=== PATIENT | female | born 1985 | race American Indian/Alaskan Native ===

== ENCOUNTER 2016-08-29 21:37 | Emergency (ER) | payer SELFPAY ==
[2016-08-29 22:54] LABS: Basophils % (Auto) 0.7 % (0.0-1.8); Eosinophils % (Auto) 2.9 % (0.0-4.3); Hematocrit 36.2 % (30.3-42.9); Hemoglobin 12.1 gm/dl (10.1-14.3); Mean Corpuscular HGB Conc 34 % (30-34); Mean Corpuscular Hemoglobin 26 pg (28-32); Mean Corpuscular Volume 78 fl (79-97); Platelet Count 264 K/mm3 (140-440); Red Blood Count 4.62 M/mm3 (3.65-5.03); Red Cell Distribution Width 12.8 % (13.2-15.2); White Blood Count 9.2 K/mm3 (4.5-11.0)
[2016-08-29 23:14] LABS: Alanine Aminotransferase 10 units/L (7-56); Albumin 3.7 g/dL (3.9-5); Alkaline Phosphatase 64 units/L (35-129); Chloride 98.9 mmol/L (98-107); Potassium 3.6 mmol/L (3.6-5.0); Sodium 136 mmol/L (137-145)
[2016-08-29 23:30] LABS: Albumin/Globulin Ratio 1.1 %; Anion Gap 18 mmol/L; Bilirubin,Total < 0.20 mg/dL (0.1-1.2); Blood Urea Nitrogen 7 mg/dL (7-17); Calcium 8.6 mg/dL (8.4-10.2); Carbon Dioxide 23 mmol/L (22-30); Glucose 97 mg/dL (65-100); Lipase 30 units/L (13-60); Total Protein 7.2 g/dL (6.3-8.2)
[2016-08-30 00:54] LABS: Bilirubin,Urine NEG (Negative); Blood,Urine NEG (Negative); Ketones,Urine NEG (Negative); Leukocyte Esterase,Urine NEG (Negative); Mucus,Urine 2+ /HPF; Nitrite,Urine NEG (Negative); Protein,Urine <15 mg/dL mg/dL (Negative); Urobilinogen,Urine < 2.0 mg/dL (<2.0)
[2016-08-30 04:43] VITALS: BP 132/50
--- NOTE | 2016-09-02 14:42 | ED Elopement Review ---
ED Pt Elopement review - Results review Lab results: Laboratory Tests 08/29/16 08/29/16 08/29/16 22:40 22:40 23:49 WBC 9.2 RBC 4.62 Hgb 12.1 Hct 36.2 MCV 78 L MCH 26 L MCHC 34 RDW 12.8 L Plt Count 264 Lymph % (Auto) 29.4 [place] % (Auto) 6.2 Eos % (Auto) 2.9 Baso % (Auto) 0.7 Lymph # 2.7 [place] # 0.6 Eos # 0.3 Baso # 0.1 Seg Neutrophils % 60.8 Seg Neutrophils # 5.6 Sodium 136 L Potassium 3.6 Chloride 98.9 Carbon Dioxide 23 Anion Gap 18 BUN 7 Creatinine 0.5 L Estimated GFR > 60 BUN/Creatinine Ratio 14.00 Glucose 97 Calcium 8.6 Total Bilirubin < 0.20 AST 9 ALT 10 Alkaline Phosphatase 64 Total Protein 7.2 Albumin 3.7 L Albumin/Globulin Ratio 1.1 Lipase 30 HCG, Quant Urine Color Yellow Urine Turbidity Clear Urine pH 5.0 Ur Specific [place] 1.020 Urine Protein <15 mg/dl Urine Glucose (UA) Neg Urine Ketones Neg Urine Blood Neg Urine Nitrite Neg Urine Bilirubin Neg Urine Urobilinogen < 2.0 Ur Leukocyte Esterase Neg Urine WBC (Auto) 1.0 Urine RBC (Auto) 1.0 U Epithel Cells (Auto) < 1.0 Urine Mucus 2+ Urine HCG, Qual Positive A 08/30/16 03:22 WBC RBC Hgb Hct MCV MCH MCHC RDW Plt Count Lymph % (Auto) [place] % (Auto) Eos % (Auto) Baso % (Auto) Lymph # [place] # Eos # Baso # Seg Neutrophils % Seg Neutrophils # Sodium Potassium Chloride Carbon Dioxide Anion Gap BUN Creatinine Estimated GFR BUN/Creatinine Ratio Glucose Calcium Total Bilirubin AST ALT Alkaline Phosphatase Total Protein Albumin Albumin/Globulin Ratio Lipase HCG, Quant 17291 H Urine Color Urine Turbidity Urine pH Ur Specific [place] Urine Protein Urine Glucose (UA) Urine Ketones Urine Blood Urine Nitrite Urine Bilirubin Urine Urobilinogen Ur Leukocyte Esterase Urine WBC (Auto) Urine RBC (Auto) U Epithel Cells (Auto) Urine Mucus Urine HCG, Qual - Call Back decision Pt Call Back Decision: Call pt to return to ED [facility] (Abdominal pain and . Needs ultrasound to evaluate for ectopic .)
== END 2016-08-30 07:32 | disposition left against medical advice (07) ==
LOC: ED 21:37
DX: O21.9 Vomiting of pregnancy, unspecified (principal); R11.0 Nausea; R10.2 Pelvic and perineal pain; Z3A.13 13 weeks gestation of pregnancy; Z53.21 Procedure and treatment not carried out due to patient leaving prior to being seen by health care provider
CPT/HCPCS: 36415; 80053; 81001; 81025; 83690; 84702; 85025

== ENCOUNTER 2016-11-16 06:19 | Observation (INO) | payer MEDICAID ==
[2016-11-16] MEDS ORDERED: LACTATED RINGERS 1,000 ML ONE (06:59)
[2016-11-16 07:50] LABS: Bacteria,Urine 1+ /HPF (Negative); Bilirubin,Urine NEG (Negative); Blood,Urine NEG (Negative); Ketones,Urine NEG (Negative); Leukocyte Esterase,Urine NEG (Negative); Mucus,Urine FEW /HPF; Nitrite,Urine NEG (Negative); Protein,Urine <15 mg/dL mg/dL (Negative); RBC,Urine < 1.0 /HPF (0.0-6.0); Urobilinogen,Urine < 2.0 mg/dL (<2.0); WBC,Urine < 1.0 /HPF (0.0-6.0)
[2016-11-16] MEDS ORDERED: LACTATED RINGERS 500 ML IV ONE (08:00)
[2016-11-16] MEDS ORDERED: VISTARIL PO PRN (10:00)
[2016-11-16 11:00] VITALS: BP 117/55
[2016-11-16] MEDS ORDERED: ZOFRAN IV PRN (11:00)
--- NOTE | 2016-11-16 11:05 | Ultrasound Report ---
COMPLETE OB ULTRASOUND: Gestation: [place] Position: Cephalic RAFAELA = 18.3 cm Placenta: Anterior Placental Grade: 0 Heart Rate: 128 BPM Cervical length: 5.0 cm (Normal > 3 cm) NEUROANATOMY VISUALIZED: Choroid Plexus Cisterna Magnum Cerebellum Lateral Ventricle ANATOMY VISUALIZED: Stomach Kidneys Bladder Diaphragm 4 Chamber Heart Heart 3 Vessel Cord Abd. Cord Insert SPINE VISUALIZED: Limited spine due to position BPD: 5.8 cm = 23 w 4 d HC: 21.8 cm = 23 w 6 d AC: 18.5 cm = 23 w 2 d FL: 4.4 cm = 24 w 3 d HC/AC Ratio: 1.18 Cephalic Index: 80.6 Estimated Weight: 629 grams Clinical age = 23 w 6 d EDC: 03/09/17 US Gest. Age = 23 w 6 d EDC: 03/09/17
[2016-11-16 12:39] LABS: Hemoglobin 10.2 gm/dl (10.1-14.3); Mean Corpuscular HGB Conc 34 % (30-34); Mean Corpuscular Hemoglobin 26 pg (28-32); Mean Corpuscular Volume 77 fl (79-97); Platelet Count 219 K/mm3 (140-440); Red Blood Count 3.91 M/mm3 (3.65-5.03); Red Cell Distribution Width 13.4 % (13.2-15.2); White Blood Count 11.8 K/mm3 (4.5-11.0)
[2016-11-16 12:41] LABS: Anion Gap 17 mmol/L; Blood Urea Nitrogen 5 mg/dL (7-17); Calcium 7.8 mg/dL (8.4-10.2); Carbon Dioxide 21 mmol/L (22-30); Chloride 106.3 mmol/L (98-107); Glucose 88 mg/dL (65-100); Potassium 3.9 mmol/L (3.6-5.0); Sodium 140 mmol/L (137-145)
== END 2016-11-16 15:15 | disposition home or self-care (01) ==
LOC: TRG 06:19 → LD 09:28
PROVIDERS: ADMIT Obstetrics & Gynecology; ATTEND Obstetrics & Gynecology
DX: O26.892 Other specified pregnancy related conditions, second trimester (principal); R11.0 Nausea; R10.9 Unspecified abdominal pain; Z3A.23 23 weeks gestation of pregnancy
CPT/HCPCS: 36415; 76805; 80048; 81001; 85027; 96374; G0378; J2405; J7120; Q0177

== ENCOUNTER 2017-02-28 09:58 | Inpatient (IN) | payer MEDICAID ==
[2017-02-28] MEDS ORDERED: ePHEDrine SULFATE IV PRN ×3 (10:25→12:54)
[2017-02-28] MEDS ORDERED: SUBLIMAZE IV PRN (10:25)
[2017-02-28] MEDS ORDERED: BRETHINE SUB-Q PRN ×2 (10:25→12:54)
[2017-02-28] MEDS ORDERED: BRETHINE IVP PRN ×2 (10:25→12:54)
[2017-02-28] MEDS ORDERED: XYLOCAINE 2% INFILTRATI ONE ×2 (10:25→14:00)
[2017-02-28] MEDS ORDERED: PITOCin/NS 20 UNIT/1000ML DRIP 20 UNITS/1,000 ML BAG IV SCH ×3 (11:00→13:00)
[2017-02-28] MEDS ORDERED: LACTATED RINGERS 1,000 ML IV SCH ×2 (11:00→13:00)
[2017-02-28 11:12] LABS: Hematocrit 33.9 % (30.3-42.9); Hemoglobin 11.5 gm/dl (10.1-14.3); Mean Corpuscular HGB Conc 34 % (30-34); Mean Corpuscular Volume 76 fl (79-97); Platelet Count 241 K/mm3 (140-440); Red Blood Count 4.49 M/mm3 (3.65-5.03); Red Cell Distribution Width 14.2 % (13.2-15.2); White Blood Count 10.6 K/mm3 (4.5-11.0)
[2017-02-28 11:14] LABS: Mean Corpuscular Hemoglobin 26 pg (28-32)
[2017-02-28] MEDS ORDERED: NARCAN 2 MG/2 ML IV PRN (12:20)
--- NOTE | 2017-02-28 12:20 | Anesthesia Consultation ---
Anesthesia Consult and Med Hx Date of service: 02/28/17 - Airway Anesthetic Teeth Evaluation: Good ROM Head & Neck: Adequate Mental/Hyoid Distance: Adequate Mallampati Class: Class II Intubation Access Assessment: Probably Good - Pre-Operative Health Status ASA Pre-Surgery Classification: ASA2 Proposed Anesthetic Plan: Epidural, Spinal - Pulmonary Hx Asthma: No COPD: No Hx Pneumonia: No - Cardiovascular System Hx Hypertension: No - Central Nervous System Hx Seizures: No Hx Psychiatric Problems: No - Endocrine Hx Renal Disease: No Hx End Stage Renal Disease: No Hx Hypothyroidism: No Hx Hyperthyroidism: No - Hematic Hx Anemia: Yes Hx Sickle Cell Disease: No - Other Systems Hx Alcohol Use: No
[2017-02-28] MEDS ORDERED: MINERAL OIL PO PRN ×2 (12:54→22:00)
[2017-02-28] MEDS ORDERED: TYLENOL PO PRN (12:57)
[2017-02-28] MEDS ORDERED: ZOFRAN IV PRN (12:57)
[2017-02-28] MEDS ORDERED: PHENERGAN PO PRN (12:57)
[2017-02-28] MEDS ORDERED: TUCKS PAD TP PRN (12:57)
[2017-02-28] MEDS ORDERED: MILK OF MAGNESIA PO PRN (12:57)
[2017-02-28] MEDS ORDERED: BENADRYL PO PRN (12:57)
[2017-02-28] MEDS ORDERED: PHENERGAN PR PRN (12:57)
[2017-02-28] MEDS ORDERED: DULCOLAX PR PRN (12:57)
[2017-02-28] MEDS ORDERED: fentaNYL-BUPIV 2 MCG/ML-0.125% 200 MCG/100 ML BAG EPIDURAL SCH (13:00)
[2017-02-28] MEDS ORDERED: SODIUM CHLORIDE FLUSH SYRINGE 10 ML IV SCH (13:00)
--- NOTE | 2017-02-28 13:04 | History and Physical Report ---
History of Present Illness Date of examination: 02/28/17 Date of admission: 02/28/17 11:40 Chief complaint: at 38 weeks with contractions. History of present illness: Patient is a 31 year old , EDC 03/09/17 who complains of contractions since 6 AM today. She denies any fluid leakage or bleeding per vagina. She reports good movement. Past History - Obstetrical History : 4 Medications and Allergies Allergies Allergy/AdvReac Type Severity Reaction Status Date / Time No Known Allergies Allergy Verified 06/18/15 18:51 Home Medications Medication Instructions Recorded Confirmed Last Taken Type Vit No.130/Iron/Folic 1 each PO DAILY 06/18/15 09/03/15 06/17/15 10:00 History [ Tablet] Ferrous Sulfate [Feosol] 325 mg PO BID 09/03/15 09/03/15 Unknown History Ondansetron [Zofran Odt] 4 mg PO Q8HR #6 tab.rapdis 11/16/16 Unknown Rx Active Meds: Active Medications Ephedrine Sulfate (Ephedrine Sulfate) 10 mg IV Q2M PRN PRN Reason: Hypotension Stop: 02/28/17 18:00 Ephedrine Sulfate (Ephedrine Sulfate) 10 mg IV Q2M PRN PRN Reason: Hypotension Stop: 02/28/17 20:00 Ephedrine Sulfate (Ephedrine Sulfate) 10 mg IV Q2M PRN PRN Reason: Hypotension Fentanyl (Sublimaze) 100 mcg IV Q2H PRN PRN Reason: Labor Pain Last Admin: 02/28/17 11:43 Dose: 100 mcg Lactated Ringer's (Lactated Ringers) 1,000 mls @ 125 mls/hr IV DIRECT ELIZABETH Last Admin: 02/28/17 10:58 Dose: 125 mls/hr Oxytocin/Sodium Chloride (Pitocin/Ns 20 Unit/1000ml Drip) 20 units in 1,000 mls @ 125 mls/hr IV DIRECT ELIZABETH Fentanyl/Bupivacaine/Sodium Chlor (Fentanyl-Bupiv 2 Mcg/Ml-0.125%) 200 mcg in 100 mls @ 12 mls/hr EPIDURAL TITR ELIZABETH PRN Reason: Protocol Lactated Ringer's (Lactated Ringers) 1,000 mls @ 125 mls/hr IV DIRECT ELIZABETH Oxytocin/Sodium Chloride (Pitocin/Ns 20 Unit/1000ml Drip) 20 units in 1,000 mls @ 125 mls/hr IV DIRECT ELIZABETH Lidocaine (Xylocaine 2%) 20 ml INFILTRATI ONCE ONE Stop: 02/28/17 12:55 Mineral Oil (Mineral Oil) 30 ml PO QHS PRN PRN Reason: Constipation Mineral Oil (Mineral Oil) 30 ml PO QHS PRN PRN Reason: Constipation Naloxone HCl (Narcan 2 Mg/2 Ml) 0.2 mg IV Q5M PRN PRN Reason: Respiratory sedation Stop: 03/01/17 00:01 Terbutaline Sulfate (Brethine) 0.25 mg SUB-Q ONCE PRN PRN Reason: Hyperstimulation/Hypertonicity Terbutaline Sulfate (Brethine) 0.25 mg IVP ONCE PRN PRN Reason: Hyperstimulation/Hypertonicity Terbutaline Sulfate (Brethine) 0.25 mg SUB-Q ONCE PRN PRN Reason: Hyperstimulation/Hypertonicity Terbutaline Sulfate (Brethine) 0.25 mg IVP ONCE PRN PRN Reason: Hyperstimulation/Hypertonicity - Vital Signs Vital signs: Vital Signs Pulse BP 85 117/61 02/28/17 10:11 02/28/17 10:11 Temp Pulse Resp BP Pulse Ox 98.1 F 70 18 136/68 100 02/28/17 10:14 02/28/17 12:53 02/28/17 10:14 02/28/17 12:53 02/28/17 12:34 - Physical Exam Cardiovascular: Normal S1, Normal S2 Lungs: Positive: Clear to auscultation Vulva: both: normal Uterus: Positive: enlarged Adnexa: both: normal Deep Tendon Reflex Grade: Normal +2 - Obstetrical FHR: category 1 Uterine Contraction Monitor Mode: External Cervical Dilatation: 5 Cervical Effacement Percentage: 100 station: -2 Uterine Contraction Pattern: Regular Results Result Diagrams: 02/28/17 10:46 Abnormal lab results 02/28/17 Range/Units 10:46 MCV 76 L (79-97) fl MCH 26 L (28-32) pg All other labs normal. Assessment and Plan - Patient Problems (1) with 38 completed weeks gestation Current Visit: Yes Status: Acute (2) Active labor Current Visit: Yes Status: Acute Plan to address problem: Admit to L&D. Routine admitting labs. and toco monitoring. Anticipate . (3) Thick meconium stained amniotic fluid Current Visit: Yes Status: Acute
--- NOTE | 2017-02-28 13:10 | Progress Note ---
Assessment and Plan - Patient Problems (1) with 38 completed weeks gestation Current Visit: Yes Status: Acute (2) Thick meconium stained amniotic fluid Current Visit: Yes Status: Acute (3) (normal spontaneous vaginal delivery) Current Visit: Yes Status: Acute Plan to address problem: Transfer to post floor. Routine post care. Subjective - Subjective Date of service: 02/28/17 Principal diagnosis: S/P Interval history: Patient became fully dilated. She ruptured spontaneously with thick meconium. She delivered via a live female from an SHANNAN position with Apgars of 8/9 and 1 and 5 mins. Bulb suction of the mouth and nose, cord clamped and cut, cord blood collected. The placenta was delivered spontaneously and it was complete with a 3-vessel cord. No episiotomy was given, no laceration was sustained. EBL was 150 cc. The uterus was firm. Peds were notified. Patient remained stable. Objective - Vital Signs Latest vital signs: Vital Signs Temp Pulse Resp BP Pulse Ox 02/28/17 13:09 69 148/66 02/28/17 12:53 70 136/68 02/28/17 12:34 71 100 02/28/17 12:29 64 98 02/28/17 12:24 71 99 02/28/17 12:22 80 121/67 02/28/17 12:19 66 99 02/28/17 12:14 68 99 02/28/17 12:11 68 120/56 02/28/17 12:09 74 130/59 02/28/17 12:08 66 98 02/28/17 12:03 82 98 02/28/17 11:57 99 H 99 02/28/17 11:55 73 91 02/28/17 11:52 88 100 02/28/17 11:47 101 H 100 02/28/17 10:14 98.1 F 18 02/28/17 10:11 85 117/61 Intake and Output 02/27/17 02/28/17 02/28/17 23:59 07:59 15:59 Intake Total 124 Output Total 350 Balance -226 Intake: Oral 124 Output: Urine 350 Void 350 Other: Total, Intake Amount 124 Total, Output Amount 350 Weight 83.915 kg Patient Weight 02/28/17 23:59 Weight 83.915 kg - Exam Cardiovascular: Present: Normal S1, Normal S2 Lungs: Present: Clear to auscultation Vulva: both: normal Deep Tendon Reflex Grade: Normal +2 - Labs Labs: Abnormal lab results 02/28/17 Range/Units 10:46 MCV 76 L (79-97) fl MCH 26 L (28-32) pg
[2017-02-28] MEDS: MOTRIN PO SCH (13:50)
--- NOTE | 2017-02-28 14:23 | Ultrasound Report ---
Limited OB ultrasound for position. Findings: A single intrauterine is identified in cephalic presentation. heart rate is 120 beats per minute.
[2017-02-28] MEDS ORDERED: PITOCin/NS 20 UNIT/1000ML DRIP 20,000 MILLIUNITS/1,000 ML BAG IV ONE (14:48)
[2017-02-28] MEDS ORDERED: NORCO 5/325 PO ONE (16:00)
[2017-02-28] MEDS: COLACE PO SCH (21:42)
[2017-03-01] MEDS: MOTRIN PO SCH ×4 (00:27→23:35)
[2017-03-01 01:33] LABS: Hematocrit 32.9 % (30.3-42.9); Hemoglobin 10.7 gm/dl (10.1-14.3)
[2017-03-01] MEDS: COLACE PO SCH ×2 (10:00→23:35)
--- NOTE | 2017-03-01 10:37 | Progress Note ---
Assessment and Plan A: PP DAY #1 Stable P: Follow Routine Orders D/C home in the AM RTO in 6 Weeks Subjective - Subjective Date of service: 03/01/17 Principal diagnosis: S/P Patient reports: appetite normal, voiding normally, pain well controlled, flatus , ambulating normally : doing well Objective - Vital Signs Latest vital signs: Vital Signs Temp Pulse Resp BP BP Pulse Ox 03/01/17 08:44 98.7 F 50 L 20 95/58 99 03/01/17 00:00 98.4 F 63 18 130/67 02/28/17 20:00 98.5 F 66 20 128/58 02/28/17 16:00 98.7 F 60 19 136/68 02/28/17 14:39 98.5 F 62 18 113/67 98 02/28/17 14:08 65 144/87 02/28/17 13:53 60 137/85 02/28/17 13:38 67 134/90 02/28/17 13:23 53 L 138/67 02/28/17 13:09 69 148/66 02/28/17 12:53 70 136/68 02/28/17 12:34 71 100 02/28/17 12:29 64 98 02/28/17 12:24 71 99 02/28/17 12:22 80 121/67 02/28/17 12:19 66 99 02/28/17 12:14 68 99 02/28/17 12:11 68 120/56 02/28/17 12:09 74 130/59 02/28/17 12:08 66 98 02/28/17 12:03 82 98 02/28/17 11:57 99 H 99 02/28/17 11:55 73 91 02/28/17 11:52 88 100 02/28/17 11:47 101 H 100 Intake and Output 02/28/17 03/01/17 03/01/17 22:59 06:59 14:59 Intake Total 120 240 Output Total 800 Balance -680 240 Intake: Oral 120 240 Output: Urine 800 Void 800 Other: Total, Intake Amount 120 240 Total, Output Amount 400 # Voids Void 1 1 - Exam Breasts: Present: normal Cardiovascular: Present: Regular rate Lungs: Present: Clear to auscultation, Normal air movement Abdomen: Present: normal appearance, soft, normal bowel sounds Uterus: Present: normal, firm, fundal height below umbilicus Extremities: Present: normal - Labs Labs: Abnormal lab results 02/28/17 Range/Units 10:46 MCV 76 L (79-97) fl MCH 26 L (28-32) pg
--- NOTE | 2017-03-01 10:38 | Discharge Summary ---
Providers - Providers Date of Admission: 02/28/17 11:40 Date of discharge: 03/02/17 Attending physician: SAVANA LAWTON MD Primary care physician: [employer] Hospitalization Reason for admission: active labor Delivery: Episiotomy: none Laceration: none Other procedures: none complications: none Discharge diagnosis: IUP at term delivered baby: female Condition at discharge: Good Disposition: DC-01 TO HOME OR SELFCARE Plan - Provider Discharge Summary Activity: routine, no sex for 6 weeks, no heavy lifting 4 weeks, no strenuous exercise Diet: routine Instructions: routine Additional instructions: [] Smoking cessation referral if applicable(refer to patient education folder for contact #) [] Refer to [facility]'s [facility] Booklet Call your doctor immediately for: * Fever > 100.5 * Heavy vaginal bleeding ( >1 pad per hour) * Severe persistent headache * Shortness of breath * Reddened, hot, painful area to leg or breast * Drainage or odor from incision. * Keep incision clean and dry at all times and follow doctor's instructions regarding bathing/showering - Follow up plan Follow up: SAVANA LAWTON MD [Staff Physician] - 6 Weeks
[2017-03-01] MEDS ORDERED: PERCOCET 5/325 PO PRN (16:33)
[2017-03-02] MEDS: MOTRIN PO SCH ×2 (05:37→12:34)
[2017-03-02 18:19] VITALS: BP 120/70
== END 2017-03-02 16:50 | disposition home or self-care (01) | DRG 775 ==
LOC: TRG 09:58 → LD 11:40 → TRG 11:40 → OB 14:26
PROVIDERS: ADMIT Obstetrics & Gynecology; ATTEND Obstetrics & Gynecology
PROC: 10E0XZZ Delivery of Products of Conception, External Approach (ICD-10-PCS; principal; 2017-02-28)
DX: O77.0 Labor and delivery complicated by meconium in amniotic fluid (principal); Z3A.38 38 weeks gestation of pregnancy; Z37.0 Single live birth; Z79.899 Other long term (current) drug therapy
CPT/HCPCS: 36415; 76815; 85014; 85018; 85027; 86592; 86850; 86900; 86901; 99211; G0463; J2590; J3010; J7120

== ENCOUNTER 2017-04-24 17:18 | Emergency (ER) | payer MEDICAID | END 2017-04-24 18:19 | disposition left against medical advice (07) | LOC: ED 17:18 | DX: Z53.21 Procedure and treatment not carried out due to patient leaving prior to being seen by health care provider (principal) ==